=== PATIENT | male | born 1980 ===

== ENCOUNTER 2023-08-30 06:21 | Outpatient (CLI) | payer OTHER ==
[2023-08-30 07:31] LABS: HEMOGLOBIN 12.9 g/dL (13-16.00); MEAN CORPUSCULAR HEMOGLOBIN 31.2 pg (27.00-32.0); MEAN CORPUSCULAR HGB CONC 33.8 g/dl (32.0-36.0); PLATELET COUNT 307 K/uL (150-450); RED BLOOD COUNT 4.12 M/uL (4.00-6.00); RED CELL DISTRIBUTION WIDTH 12.1 % (11.5-14.5)
[2023-08-30 07:53] LABS: PH,URINE 5.5 (5.0-8.0); URINE APPEARANCE Clear; URINE BILIRRUBIN Negative (NEGATIVE); URINE BLOOD Negative; URINE COLOR Yellow; URINE GLUCOSE Negative (NEGATIVE); URINE LEUKOCYTE Negative; URINE NITRATE Negative; URINE PROTEIN Negative (NEGATIVE); URINE UROBILINOGEN 0.2 E.U./dl
[2023-08-30 07:54] LABS: URINE RBC 5.8 uL (0.0-20.8)
[2023-08-30 08:02] LABS: URINE BACTERIA 1.2 uL (0.0-1933); URINE EPITHELIAL CELLS 0.6 uL (0.0-38.8); URINE WBC 1.5 uL (0.0-23.2)
[2023-08-30 08:20] LABS: ALBUMIN 3.2 gm/dL (3.4-5.0); BILIRUBIN TOTAL 0.35 mg/dL (0.3-1.2); CALCIUM 8.8 mg/dL (8.5-10.1); CHOL HDL RATIO 2.1 (0-5.0); CREATININE SERUM 0.72 mg/dL (0.70-1.30); GFR 118.05; GLOBULINA 3.9 G/DL (2.4-3.5); POTASSIUM 4.51 mEq/L (3.5-5.1); PROSTATIC SPECIFIC ANTIGEN 0.261 NG/ML (0.010-4.00); TOTAL PROTEIN 7.1 gm/dL (6.4-8.2); TSH 1.2 uIU/mL (0.358-3.74)
[2023-08-30 08:26] LABS: T4 TOTAL 16.66 UG/DL (4.5-12.1)
== END 2023-08-30 06:22 | disposition home or self-care (01) ==
LOC: LAB 06:21
PROVIDERS: ATTEND General Practice
DX: E78.2 Mixed hyperlipidemia (principal); E03.9 Hypothyroidism, unspecified; B19.20 Unspecified viral hepatitis C without hepatic coma; K29.01 Acute gastritis with bleeding; F19.10 Other psychoactive substance abuse, uncomplicated

== ENCOUNTER 2023-08-30 07:06 | Outpatient (CLI) | payer OTHER | END 2023-08-30 07:14 | disposition home or self-care (01) | LOC: RAD 07:06 | PROVIDERS: ATTEND General Practice | DX: B19.20 Unspecified viral hepatitis C without hepatic coma (principal) ==

== ENCOUNTER 2023-09-25 08:19 | Outpatient (CLI) | payer OTHER ==
[2023-09-25 09:09] LABS: ob POSITIVE (NEGATIVE)
== END 2023-09-25 08:20 | disposition home or self-care (01) ==
LOC: LAB 08:19
PROVIDERS: ATTEND General Practice
DX: E11.65 Type 2 diabetes mellitus with hyperglycemia (principal); E78.2 Mixed hyperlipidemia; E03.9 Hypothyroidism, unspecified; B19.20 Unspecified viral hepatitis C without hepatic coma; F19.10 Other psychoactive substance abuse, uncomplicated; K29.01 Acute gastritis with bleeding

== ENCOUNTER → 2023-12-18 09:47 | Outpatient (CLI) | payer OTHER ==
[2023-12-18 11:31] LABS: INR 1.05; PARTIAL THROMBOPLASTIN TIME 27.6 SECONDS (22.0-34.0)
== END | disposition home or self-care (01) ==
LOC: LAB 09:47
DX: B18.2 Chronic viral hepatitis C (principal)

== ENCOUNTER 2023-12-18 10:21 | Outpatient (CLI) | payer OTHER | END 2023-12-18 10:28 | disposition home or self-care (01) | LOC: RAD 10:21 | DX: I11.9 Hypertensive heart disease without heart failure (principal) ==

== ENCOUNTER → 2024-05-31 07:33 | Outpatient (CLI) | payer OTHER ==
[2024-05-31 08:26] LABS: PH,URINE 6.5 (5.0-8.0); URINE APPEARANCE Clear; URINE BILIRRUBIN Negative (NEGATIVE); URINE BLOOD Negative; URINE COLOR Yellow; URINE GLUCOSE Negative (NEGATIVE); URINE LEUKOCYTE Negative; URINE NITRATE Negative; URINE PROTEIN Negative (NEGATIVE); URINE UROBILINOGEN 0.2 E.U./dl
[2024-05-31 08:41] LABS: HEMOGLOBIN 14.9 g/dL (13-16.00); MEAN CELL VOLUME 93.9 fL (80.0-100.00); MEAN CORPUSCULAR HEMOGLOBIN 33.2 pg (27.00-32.0); MEAN CORPUSCULAR HGB CONC 35.4 g/dl (32.0-36.0); PLATELET COUNT 155 K/uL (150-450); RED BLOOD COUNT 4.47 M/uL (4.00-6.00); RED CELL DISTRIBUTION WIDTH 12.4 % (11.5-14.5)
[2024-05-31 08:42] LABS: URINE RBC 13.7 uL (0.0-20.8); URINE WBC 2.3 uL (0.0-23.2)
[2024-05-31 09:26] LABS: ALBUMIN 4.1 gm/dL (3.4-5.0); BILIRUBIN TOTAL 0.91 mg/dL (0.3-1.2); CALCIUM 9.6 mg/dL (8.5-10.1); CHOL HDL RATIO 2.8 (0-5.0); CREATININE SERUM 0.79 mg/dL (0.70-1.30); GFR 106.06; GLOBULINA 3.7 G/DL (2.4-3.5); POTASSIUM 4.12 mEq/L (3.5-5.1); PROSTATIC SPECIFIC ANTIGEN 0.326 NG/ML (0.010-4.00); TOTAL PROTEIN 7.8 gm/dL (6.4-8.2); TSH 1.03 uIU/mL (0.358-3.74)
[2024-05-31 09:35] LABS: URINE BACTERIA 3.7 uL (0.0-1933); URINE EPITHELIAL CELLS 0.6 uL (0.0-38.8)
[2024-06-04 21:09] LABS: hcv q HCV Not Detected IU/mL (.)
== END | disposition home or self-care (01) ==
LOC: LAB 07:33
PROVIDERS: ATTEND General Practice
DX: B18.2 Chronic viral hepatitis C (principal); Z13.0 Encounter for screening for diseases of the blood and blood-forming organs and certain disorders involving the immune mechanism; Z13.228 Encounter for screening for other metabolic disorders; N39.0 Urinary tract infection, site not specified; Z13.6 Encounter for screening for cardiovascular disorders; Z13.29 Encounter for screening for other suspected endocrine disorder; Z12.5 Encounter for screening for malignant neoplasm of prostate; Z13.1 Encounter for screening for diabetes mellitus

== ENCOUNTER 2024-12-15 10:07 | Outpatient (CLI) | payer OTHER | END 2024-12-15 10:12 | disposition home or self-care (01) | LOC: RAD 10:07 | DX: J11.89 Influenza due to unidentified influenza virus with other manifestations (principal) ==

== ENCOUNTER 2025-10-13 08:19 | Outpatient (CLI) | payer OTHER | END 2025-10-13 08:24 | disposition home or self-care (01) | LOC: RAD 08:19 | DX: I11.9 Hypertensive heart disease without heart failure (principal) ==